=== PATIENT | male | born 1970 | race African-American/Black ===

== ENCOUNTER 2018-02-01 15:22 | Emergency (ER) | payer SELFPAY ==
[~2018-02-01] VITALS: Ht 182.9 cm; Wt 140.9 kg
[2018-02-01 15:27] VITALS: Ht 182.9 cm; Wt 140.9 kg
[2018-02-01] MEDS ORDERED: CYCLOBENZAPRINE10 MG PO (15:55)
[2018-02-01] MEDS ORDERED: NAPROSYN500 MG PO (15:55)
[2018-02-01 16:33] VITALS: BP 184/96
== END 2018-02-01 16:34 | disposition home or self-care (01) ==
LOC: D.ER 15:22
DX: S46.911A Strain of unspecified muscle, fascia and tendon at shoulder and upper arm level, right arm, initial encounter (principal); V89.0XXA Person injured in unspecified motor-vehicle accident, nontraffic, initial encounter; Y93.89 Activity, other specified; Y92.410 Unspecified street and highway as the place of occurrence of the external cause; M54.6 Pain in thoracic spine; M54.2 Cervicalgia